=== PATIENT | male | born 1975 | race Caucasian/White ===

== ENCOUNTER 2019-04-02 09:34 | Inpatient (IN) | payer BC ==
[~2019-04-02] VITALS: Ht 185.4 cm; Wt 97.5 kg
[2019-04-02 09:39] VITALS: BP_SYST 158
[2019-04-02] MEDS ORDERED: NITROGLYCERIN 1 INCH (GM) OINT. TP ONE (09:51)
[2019-04-02] MEDS ORDERED: MORPHINE 4 MG/ML INJ. SYRINGE IVP ONE (09:51)
[2019-04-02 10:33] LABS: BASOPHILS # (AUTO) 0.1 K/uL (0.0-0.2); BASOPHILS % (AUTO) 1.2 % (0.0-2.0); EOSINOPHILS # (AUTO) 0.4 K/uL (0.0-0.4); EOSINOPHILS % (AUTO) 3.7 % (0.0-4.0); HEMATOCRIT 50.7 % (36-54); HEMOGLOBIN 17.7 g/dL (14.0-18.0); LYMPHOCYTES # (AUTO) 2.6 K/uL (1.0-5.5); LYMPHOCYTES % (AUTO) 24.9 % (20.5-51.5); MEAN CORPUSCULAR HEMOGLOBIN 33 pg (27-31); MEAN CORPUSCULAR HGB CONC 35 % (32-36); MEAN CORPUSCULAR VOLUME 95 fL (79.0-98.0); MONOCYTES # (AUTO) 0.9 K/uL (0.0-1.0); MONOCYTES % (AUTO) 8.7 % (1.7-9.3); NEUTROPHILS # (AUTO) 6.3 K/uL (1.8-7.7); NEUTROPHILS % (AUTO) 61.5 % (40.0-70.0); PLATELET COUNT (AUTO) 254 K/uL (130-430); RED BLOOD CELL COUNT(AUTO) 5.36 MIL/uL (4.2-6.2); RED CELL DISTRIBUTION WIDTH 13.4 % (9.0-15.0); WHITE BLOOD COUNT (AUTO) 10.3 K/uL (4.8-10.8)
[2019-04-02 10:35] LABS: CALCIUM 8.7 mg/dL (8.4-11.0); CREATININE 0.98 mg/dL (0.55-1.30); POTASSIUM 4.2 mmol/L (3.5-5.1)
[2019-04-02 10:40] LABS: ALBUMIN 3.6 g/dL (3.4-4.8); TOTAL BILIRUBIN 0.8 mg/dL (0.0-1.0)
[2019-04-02 10:52] LABS: INR 0.9 (0.80-1.20); PROTHROMBIN TIME 9.6 SECS (9.5-12.5)
[2019-04-02] MEDS ORDERED: ASPIRIN 325 MG TABLET PO ONE (11:00)
[2019-04-02] MEDS ORDERED: INSULIN REGULAR, HUMAN 10 UNITS/0.1 ML INJ IVP ONE (11:15)
[2019-04-02] MEDS ORDERED: ASPIRIN 325 MG TABLET ONE (11:36)
[2019-04-02] MEDS ORDERED: ACETAMINOPHEN 325 MG TABLET ONE (11:36)
[2019-04-02] MEDS ORDERED: DEXTROSE 50% JECT 50 ML DISP.SYRIN IVP PRN (11:45)
[2019-04-02] MEDS ORDERED: INSULIN REGULAR, HUMAN 100 UNITS/ML, 10 ML VIAL (novoLIN R) SUBCUT PRN (11:45)
[2019-04-02] MEDS ORDERED: ENALAPRILAT DIHYDRATE 1.25 MG/ML VIAL IVP PRN (11:45)
[2019-04-02] MEDS ORDERED: ENOXAPARIN SODIUM 100 MG/ML SYRINGE SUBCUT SCH (12:00)
[2019-04-02 12:28] VITALS: BP_SYST 126
[2019-04-02] MEDS ORDERED: ATORVASTATIN 20 MG TABLET PO ONE (13:45)
[2019-04-02 15:14] VITALS: BP_SYST 119
[2019-04-02 17:35] LABS: TRIGLYCERIDES 106 mg/dL (30-150)
[2019-04-02 17:36] LABS: CHOLESTEROL 188 mg/dL (<200); HDL CHOLESTEROL 44 mg/dL (>45)
[2019-04-02 17:56] LABS: LDL CHOLESTEROL 131 mg/dL (<100)
[2019-04-02] MEDS ORDERED: METOPROLOL TARTRATE 25 MG TABLET PO SCH (21:00)
[2019-04-03] MEDS ORDERED: ATORVASTATIN 20 MG TABLET PO SCH (09:00)
[2019-04-03] MEDS ORDERED: ASPIRIN 325 MG TABLET PO SCH (09:00)
== END 2019-04-02 18:15 | disposition short-term general hospital (02) | DRG 282 ==
LOC: SED 09:34 → STU 11:38
PROVIDERS: ADMIT Internal Medicine Hospice and Palliative Medicine; ATTEND Internal Medicine Hospice and Palliative Medicine
DX: I21.4 Non-ST elevation (NSTEMI) myocardial infarction (principal); E11.9 Type 2 diabetes mellitus without complications; I20.9 Angina pectoris, unspecified; F17.210 Nicotine dependence, cigarettes, uncomplicated; Z83.3 Family history of diabetes mellitus
CPT/HCPCS: 36415; 71045; 80053; 80061; 82962; 83036; 83880; 84484; 85025; 85379; 85610-TC; 85730-TC; 93005; 93306; 96372; 96374; 99291; G0378; J1650; J1815; J2270

== ENCOUNTER 2022-02-07 00:50 | Emergency (ER) | payer BC ==
[~2022-02-07] VITALS: Ht 182.9 cm; Wt 86.2 kg
[2022-02-07 01:05] VITALS: BP_SYST 141
[2022-02-07 01:32] VITALS: BP_SYST 147
== END 2022-02-07 01:42 | disposition home or self-care (01) ==
LOC: SED 00:50
DX: S01.81XA Laceration without foreign body of other part of head, initial encounter (principal); E11.9 Type 2 diabetes mellitus without complications; Y04.0XXA Assault by unarmed brawl or fight, initial encounter; Y93.89 Activity, other specified; Y92.89 Other specified places as the place of occurrence of the external cause; Y99.8 Other external cause status
CPT/HCPCS: 99282

== ENCOUNTER 2022-12-17 11:55 | Emergency (ER) | payer BC, OTHER ==
[~2022-12-17] VITALS: Ht 185.4 cm; Wt 86.2 kg
[2022-12-17 11:55] VITALS: BP_SYST 138
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
--- NOTE | 2022-12-17 12:00 | NUR ---
BROUGHT BACK TO BED #3 AND TRIAGED. REPORT GIVEN TO KELLY
--- NOTE | 2022-12-17 12:11 | NUR ---
DR. BREEN AT BEDSIDE TO ASSESS PT.
[2022-12-17] MEDS ORDERED: KETOROLAC TROMETHAMINE 60 MG/2 ML VIAL IM ONE (12:15)
--- NOTE | 2022-12-17 12:24 | NUR ---
TORADOL 60MG IM GIVEN TO RIGHT DELTOID. SITE WNL. COVERED WITH CDI BANDAID.
--- NOTE | 2022-12-17 12:41 | NUR ---
R/T AT BEDSIDE GIVING BREATHING TX. Addendum: 12/17/22 at 1242 by [id number] CLARIFICATION: CHARTING ON WRONG PT.
--- NOTE | 2022-12-17 12:48 | NUR ---
PT TAKEN TO CT SCAN AT THIS TIME.
--- NOTE | 2022-12-17 13:05 | NUR ---
PT BACK FROM CT SCAN AND PLACED ON MONITOR
--- NOTE | 2022-12-17 13:40 | NUR ---
DR. BREEN AT BEDSIDE TO DISCUSS POC.
[2022-12-17] MEDS ORDERED: NAPR-1172 PO (13:48)
[2022-12-17 13:50] VITALS: BP_SYST 140
--- NOTE | 2022-12-17 13:58 | NUR ---
Patient given written and verbal discharge instructions and verbalizes understanding. ER MD discussed with patient the results and treatment provided. Patient in stable condition. ID arm band removed. IV catheter removed intact and dressing applied, no active bleeding. Rx of NAPROSYN given. Patient educated on pain management and to follow up with PMD. Pain Scale 0/10. Opportunity for questions provided and answered. Medication side effect fact sheet provided.
== END 2022-12-17 13:58 | disposition home or self-care (01) ==
LOC: SED 11:55
DX: S00.83XA Contusion of other part of head, initial encounter (principal); F10.129 Alcohol abuse with intoxication, unspecified; E11.9 Type 2 diabetes mellitus without complications; Z79.899 Other long term (current) drug therapy; W18.30XA Fall on same level, unspecified, initial encounter; Y93.89 Activity, other specified; Y92.89 Other specified places as the place of occurrence of the external cause; Y99.8 Other external cause status; Y90.6 Blood alcohol level of 120-199 mg/100 ml
CPT/HCPCS: 99285; 70450; 72125; 76376; 96372; J1885